=== PATIENT | female | born 1940 | race Caucasian/White ===

== ENCOUNTER 2017-12-16 10:53 | Inpatient (IN) | payer MEDICARE, BC ==
[~2017-12-16] VITALS: Ht 172.7 cm; Wt 65.7 kg
--- NOTE | ~2017-12-16 | MORECARE ---
CASE MANAGEMENT DISCHARGE SUMMARY PATIENT: ARIC FORTUNEBURY UNIT: [id number] ADM DATE: 12/16/17 AGE: 77 : 40 SEX: F ROOM/BED: D.4042 AUTHOR: RAGHU,DOC PHYSICIAN: REFERRING PHYSICIAN: TERELL VERGARA MD DATE OF SERVICE: 12/17/17 Discharge Plan Patient Name: ARIC FORTUNE Facility: [facility]:[place] : 1940 Planned Disposition: Home Anticipated Discharge Date: 12/17/17 Discharge Date: 12/17/2017 Expected LOS: 1 Initial Reviewer: [email or web address] Initial Review Date: 12/17/2017 Generated: 12/17/17 6:10 pm Comments DCP- Discharge Planning Updated by [email or web address]: Naldo Shaver on 12/17/17 4:[address] Patient Name: ARIC FORTUNE Admission Status: Urgent Accout number: [id number] Admission Date: 12-16-2017 : 1940 Admission Diagnosis:UNSPECIFIED ATRIAL FIBRILLATION Attending: TERELL VERGARA Current LOS: 1 Anticipated DC Date: 12-17-2017 Planned Disposition: Home Primary Insurance: MEDICARE A & B Discharge Planning Comments: CM MET WITH PT AND SPOUSE AT [facility] TO DISCUSS DISCHARGE PLANNING AND NEEDS. ARIC FORTUNE provided verbal consent to discuss current and ongoing needs with/in the presence of: SPOUSE, SONYA. PT REPORTS LIVING AT HOME INDEPENDENTLY WITH HER SPOUSE. PT HAS NO MEDICAL EQUIPMENT AND NO OUTSIDE SERVICES ASSISTING IN THE HOME. CM DISCUSSED AVAILABILITY OF HOME HEALTH, REHAB SERVICES AND MEDICAL EQUIPMENT. PT DENIES DISCHARGE NEEDS, REPORTS HER SPOUSE WILL PICK HER UP FOR DISCHARGE HOME TODAY. CNC LATHE MACHINE OPERATOR NOTIFIED. Wellness Assistant: Naldo Shaver DCPIA - Discharge Planning Initial Assessment Updated by [email or web address]: Naldo Shaver on 12/17/17 5:01 pm * Is the patient Alert and Oriented? Yes * How many steps to enter\exit or inside your home? RAMP * PCP DR OLSEN * Pharmacy [facility] [place] * Preadmission Environment Home with Family * ADLs Independent * Equipment None * Other Equipment NO MEDICAL EQUIPMENT PROVIDER PREFERENCE * List name and contact numbers for known caregivers / representatives who currently or will assist patient after discharge: SONYA FORTUNE, SPOUSE, * Verbal permission to speak to the caregivers and representatives has been obtained from the patient. Yes * Community resources currently utilized None * Please name any agencies selected above. NONE * Additional services required to return to the preadmission environment? No * Can the patient safely return to the preadmission environment? Yes * Has this patient been hospitalized within the prior 30 days at any hospital? No Last DP export: 12/17/17 4:02 p Patient Name: ARIC FORTUNE Page [id number] at 1710 All edits/amendments must be made on the electronic document DICTATION DATE: 12/17/171708 RN MOBILE: CARMELLA 12/17/171708 RPT#: [id number] DC DATE:12/17/17 STATUS: DIS IN [facility] [address] [place] [address] END OF REPORT
--- NOTE | ~2017-12-16 | MORECARE ---
CASE MANAGEMENT DISCHARGE SUMMARY PATIENT: ARIC FORTUNE CECIL UNIT: [id number] ADM DATE: 12/16/17 AGE: 77 : 40 SEX: F ROOM/BED: D.[facility]7 AUTHOR: TEMO KRISHNAMURTHY PHYSICIAN: REFERRING PHYSICIAN: TERELL VERGARA MD DATE OF SERVICE: 12/17/17 Discharge Plan Patient Name: ARIC FORTUNE [facility] [facility] 1940 Planned Disposition: Home Anticipated Discharge Date: 12/17/17 Discharge Date: 12/17/2017 Expected LOS: 1 Initial Reviewer: [email or web address] Initial Review Date: 12/17/2017 Generated: 12/17/17 6:02 pm DCPIA - Discharge Planning Initial Assessment Updated by [email or web address]: Naldo Shaver on 12/17/17 5:01 pm * Is the patient Alert and Oriented? Yes * How many steps to enter\exit or inside your home? RAMP * PCP DR OLSEN * Pharmacy [facility] [place] * Preadmission Environment Home with Family * ADLs Independent * Equipment None * Other Equipment NO MEDICAL EQUIPMENT PROVIDER PREFERENCE * List name and contact numbers for known caregivers / representatives who currently or will assist patient after discharge: SONYA FORTUNE, SPOUSE, * Verbal permission to speak to the caregivers and representatives has been obtained from the patient. Yes * Community resources currently utilized None * Please name any agencies selected above. NONE * Additional services required to return to the preadmission environment? No * Can the patient safely return to the preadmission environment? Yes * Has this patient been hospitalized within the prior 30 days at any hospital? No Patient Name: ARIC FORTUNE Page 23720 at 1703 All edits/amendments must be made on the electronic document DICTATION DATE: 12/17/171701 ASSISTANT PROFESSOR OF CHEMISTRY: CARMELLA 12/17/171701 RPT#: [id number] DC DATE:12/17/17 STATUS: DIS IN [facility] [address] [place] [address] END OF REPORT
--- NOTE | ~2017-12-16 | CN ---
PATIENT NAME:ARIC MILLER MEDICAL RECORD: [id number] : 40 LOCATION:D. D.2117 ADMIT DATE: 12/16/17 ACCOUNT: [id number] CONSULTING PHYSICIAN: CASSY VELAZQUEZ MD REFERRING PHYSICIAN: TERELL VERGARA MD DATE OF CONSULTATION: 12/16/2017 DIAGNOSES: 1. Paroxysmal atrial fibrillation. 2. Hypertension. HISTORY OF PRESENT ILLNESS: Mrs. Miller presents to Dr. Ortiz's office with labile hypertension. She is on losartan and hydrochlorothiazide. Supposedly, the EKG at his office with atrial fibrillation. Now, her EKG is sinus rhythm. Echocardiogram was performed. It is a normal LV function. Mild dilatation of the left atrium. No significant valvular disease. OVERALL IMPRESSION: Labile hypertension, paroxysmal atrial fibrillation. At this time, we will add Cardizem to her medical regimen. We will control the blood pressure as well as the atrial fibrillation. Further care depends on the results with the Cardizem. TRANSINT:[id number] Voice Confirmation ID: [id number] DOCUMENT ID: [id number] CASSY VELAZQUEZ MD at 1059 CC: [id number] DICTATION DATE: 12/16/17 1225 DOLL MAKER: 12/16/17 1239 ADM IN [place] [id number] [place] [id number]
--- NOTE | ~2017-12-16 | EC ---
PATIENT:ARIC FORTUNE DATE OF SERVICE: 12/16/17 SEX: F MEDICAL RECORD: [id number] DATE OF : 40 LOCATION:D.M2 D.211 AGE OF PATIENT: 77 ADMISSION DATE: 12/16/17 REFERRING PHYSICIAN: INTERPRETING PHYSICIAN: CASSY PARKER MD ECHOCARDIOGRAM REPORT ECHO CHARGES 4 ECHO COMPLETE Date: 12/16/17 CLINICAL DIAGNOSIS: AFIB/HTN ECHOCARDIOGRAPHIC MEASUREMENTS (adult normal given) AC root (d.<3.7cm) 3.1 cm LV Septum d (<1.2 cm> 1.2 cm Valve Excursion 1.2 cm LV Septum (systole) 1.6 cm Left Atria (s.<4.0cm> 3.6 cm LVPW d(<1.2cm) 1.5 cm RV (d.<2.3cm) 3.9 cm LVPW (sytole) 1.8 cm LV diastole(<5.6CM) 5.3 cm MV E-F(>70mm/sec) cm LV systole 3.7 cm LVOT Diameter 1.8 cm MV exc.(>10mm) 1.6 cm Est.ejection fraction (50-75%) % DOPPLER: LVIT cm/sec A 55.0 cm/sec E 90.0 cm/sec LA cm/sec RVSP 32 mmHg LVOT 123 cm/sec AOP1/2T m/s Asc. Ao 151 cm/sec RVOT 73 cm/sec RA cm/sec PA 108 cm/sec AV Gradient Peak 9.10 mmHg AV Mean 5.95 mmHg AV Area 1.7 cm MV Gradient Peak 8.52 mmHg MV Mean 1.89 mmHg MV Area cm COMMENTS: Work Ticket Distributor: Shama BRIG[employer] Tire Assembler: 1 Dr. Parker TAPE# PACS Pericardial Effusion N DATE OF SERVICE: 12/17/2017 PROCEDURE: Echocardiogram. FINDINGS: 1. Left ventricular chamber size is within normal limits. Left ventricular systolic function is normal. Overall ejection fraction estimated at 60%. 2. Left atrium is within normal limits at 3.6 cm. Right atrium and right ventricular chamber sizes are mildly dilated. 3. Valvular structure have normal structure and motion. ECHOCARDIOGRAM REPORT [id number] ARIC FORTUNE 4. Doppler interrogation reveals mild mitral regurgitation, mild tricuspid regurgitation, no other valvular insufficiency or stenosis. Pulmonary systolic pressure is estimated at 32 mmHg. 5. No evidence of pericardial effusion or left ventricular thrombus. TRANSINT:[id number] Voice Confirmation ID: [id number] DOCUMENT ID: [id number] CASSY PARKER MD at 1031 CC: [id number] DICTATION DATE: 12/17/17 1158 DOUGH PUNCHER: 12/17/17 1438 DIS IN 12/17/17 [place] [id number] [place] [id number]
[2017-12-16] MEDS ORDERED: HCTZ25 MG PO (11:59)
[2017-12-16] MEDS ORDERED: COZAAR50 MG PO (12:00)
[2017-12-16 12:03] LABS: BASOPHILS 0.5 % (0-2); EOSINOPHILS 0.7 % (0-7); HEMATOCRIT 42.5 % (36.0-48.0); HEMOGLOBIN 14.4 g/dL (12-16); IMMATURE GRANULOCYTES 0.2 % (0-5); LYMPHOCYTES 29.7 % (15-50); MCH 32.7 pg (26.0-34.0); MCHC 33.9 g/dL (31.0-37.0); MCV 96.4 fL (80.0-100.0); MEAN PLATELET VOLUME 10.9 fL (7.4-10.4); MONOCYTES 16.8 % (2-11); NEUTROPHILS 52.1 % (40-80); PLATELET COUNT 206 10x3/uL (130-400); RBC 4.41 10x6/uL (4.00-5.40); RDW 12.8 % (11.5-14.5); WBC 4.4 10x3/uL (4.8-10.8)
[2017-12-16] MEDS ORDERED: MAG PO (12:03)
[2017-12-16] MEDS ORDERED: [UNRECOGNIZED DRUG - OTHER] PO (12:03)
[2017-12-16 12:25] LABS: ANION GAP 12.3 mmol/L (8-16); BILIRUBIN - TOTAL 0.9 mg/dL (0.2-1.3); CALCIUM 9.2 mg/dL (8.5-10.1); CARBON DIOXIDE 30.1 mmol/L (21.0-32.0); CREATININE - SERUM 0.9 mg/dL (0.6-1.3); POTASSIUM - SERUM 3.4 mmol/L (3.5-5.1); PROTEIN - SERUM 6.9 g/dL (6.4-8.2)
[2017-12-16 12:30] LABS: MAGNESIUM - SERUM 2.2 mg/dL (1.8-2.4); THYROID STIMULATING HORMONE 1.34 uIU/mL (0.36-3.74)
[2017-12-16 12:34] LABS: CKMB 2.6 U/L (0.0-3.6); CREATINE KINASE 141 UL (21-215); TROPONIN-I 0.057 ng/mL (0.000-0.060)
[2017-12-16 14:01] LABS: APTT 34.2 SECONDS (22.8-39.4); INR 1.01 (0.85-1.17); PROTIME 12.9 SECONDS (11.6-15.0)
[2017-12-16 14:06] LABS: T4 THYROXIN - FREE 1.3 ng/dL (0.76-1.46)
[2017-12-16 14:30] LABS: LYMPHOCYTES 36 % (15-50); MONOCYTES 9 % (2-11); NEUTROPHILS 54 % (40-80); PLATELET ESTIMATE NORMAL; PLATELET MORPHOLOGY NORMAL PLT MORPH
[2017-12-16 14:49] VITALS: BP 152/76; Ht 172.7 cm; Wt 65.7 kg
[2017-12-16 15:32] LABS: APPEARANCE CLEAR (CLEAR); COLOR YELLOW (YELLOW); GLUCOSE NEGATIVE (NEGATIVE); KETONE SMALL mg/dL (NEGATIVE); NITRITE NEGATIVE (NEGATIVE); PROTEIN NEGATIVE (NEGATIVE)
[2017-12-16 15:33] LABS: BACTERIA NONE SEEN /hpf (NONE SEEN); BILIRUBIN NEGATIVE (NEGATIVE); EPITHELIAL CELLS OCC /hpf (0-5); RED CELLS - URINE NONE SEEN /hpf (0-5); UROBILINOGEN NORMAL (NORMAL); WHITE CELLS - URINE RARE /hpf (0-5)
[2017-12-16 15:57] VITALS: BP 141/70
[2017-12-16 18:29] LABS: CKMB 2.2 U/L (0.0-3.6); CREATINE KINASE 150 UL (21-215); TROPONIN-I 0.051 ng/mL (0.000-0.060)
[2017-12-16 20:52] VITALS: BP 121/72
[2017-12-17] VITALS: BP 142/73
[2017-12-17 01:13] LABS: CREATINE KINASE 133 UL (21-215); TROPONIN-I 0.045 ng/mL (0.000-0.060)
[2017-12-17 04:00] VITALS: BP 136/76
[2017-12-17 06:24] LABS: BASOPHILS 0.5 % (0-2); EOSINOPHILS 2.1 % (0-7); HEMATOCRIT 36.3 % (36.0-48.0); LYMPHOCYTES 35.1 % (15-50); MCH 32.3 pg (26.0-34.0); MCHC 33.1 g/dL (31.0-37.0); MCV 97.8 fL (80.0-100.0); MEAN PLATELET VOLUME 11.2 fL (7.4-10.4); MONOCYTES 19.1 % (2-11); NEUTROPHILS 43.2 % (40-80); PLATELET COUNT 181 10x3/uL (130-400); RBC 3.71 10x6/uL (4.00-5.40); WBC 3.9 10x3/uL (4.8-10.8)
[2017-12-17 06:37] LABS: CALC OSMOLALITY 285 mosm/kg (275-300); CALCIUM 7.6 mg/dL (8.5-10.1); CARBON DIOXIDE 25.6 mmol/L (21.0-32.0); CHLORIDE - SERUM 109 mmol/L (98-107); GLUCOSE 75 mg/dL (74-106); POTASSIUM - SERUM 3.2 mmol/L (3.5-5.1); SODIUM 143 mmol/L (136-145); UREA NITROGEN 17 mg/dL (7-18)
[2017-12-17 06:38] LABS: CREATININE - SERUM 0.6 mg/dL (0.6-1.3); eGFR NON AFRICAN AMERICAN > 90 mL/min (90-120)
[2017-12-17 09:00] VITALS: BP 171/79
[2017-12-17 13:29] VITALS: BP 135/79
[2017-12-17] MEDS ORDERED: CARDIZEM CD180 MG PO (15:09)
[2017-12-17 16:06] VITALS: BP 164/76
== END 2017-12-17 17:02 | disposition home or self-care (01) | DRG 310 ==
LOC: D.M2 10:53
PROVIDERS: Internal Medicine Nephrology
DX: I48.0 Paroxysmal atrial fibrillation (principal); I10 Essential (primary) hypertension; E87.6 Hypokalemia

== ENCOUNTER → 2020-08-09 12:04 | Outpatient (CLI) | payer MEDICARE, BC ==
[2017-12-16 14:49] VITALS: BMI 21.8
--- NOTE | ~2020-08-09 | EC ---
PATIENT:ARIC FORTUNE DATE OF SERVICE: 08/09/20 SEX: F MEDICAL RECORD: [id number] DATE OF : 40 [facility] AGE OF PATIENT: 79 ADMISSION DATE: 08/09/20 REFERRING PHYSICIAN: INTERPRETING PHYSICIAN: GERALD TOBIAS MD ECHOCARDIOGRAM REPORT ECHO CHARGES 4 ECHO COMPLETE Date: 08/09/20 CLINICAL DIAGNOSIS: HTN, PAROXYSMAL AFIB ECHOCARDIOGRAPHIC MEASUREMENTS (adult normal given) AC root (d.<3.7cm) 2.8 cm LV Septum d (<1.2 cm> 0.7 cm Valve Excursion 1.8 cm LV Septum (systole) 1.1 cm Left Atria (s.<4.0cm> 4.0 cm LVPW d(<1.2cm) 0.8 cm RV (d.<2.3cm) 2.9 cm LVPW (sytole) 1.2 cm LV diastole(<5.6CM) 5.4 cm MV E-F(>70mm/sec) cm LV systole 3.3 cm LVOT Diameter 1.8 cm MV exc.(>10mm) 1.2 cm Est.ejection fraction (50-75%) % DOPPLER: LVIT cm/sec A 39 cm/sec E 72 cm/sec LA cm/sec RVSP 37 mmHg LVOT 97 cm/sec AOP1/2T m/s Asc. Ao 143 cm/sec RVOT 67 cm/sec RA cm/sec PA 65 cm/sec AV Gradient Peak 8.2 mmHg AV Mean 4.3 mmHg AV Area 1.4 cm MV Gradient Peak 5.0 mmHg MV Mean 2.2 mmHg MV Area cm COMMENTS: Customer Greeter: Slava PRESCOTT Kiln Stacker: 3 Dr. Lynn TAPE# Pericardial Effusion N DATE OF SERVICE: Adequate 2D, color-flow imaging, spectral Doppler, and M-Mode FINDINGS: No LVH. LV internal dimensions are normal. Wall motion is normal. EF equal to 55%. Aortic valve is tricuspid. No evidence of stenosis. No significant AI. Left atrium is upper limits of normal at 4.0 cm. Mitral valve shows no prolapse. Trace MR. Right side is grossly normal. Trace TR. TRANSINT:[id number] Voice Confirmation ID: [id number] DOCUMENT ID: [id number] ECHOCARDIOGRAM REPORT [id number] ARIC FORTUNE GERALD TOBIAS MD CC: [id number] DICTATION DATE: 08/13/20 1357 RELATIONSHIP MGR: 08/13/20 2217 DEP CLI 08/09/20 [place] [id number] [place] [address]
[~2020-08-09 12:04] MED LIST: CARDIZEM CD180 MG PO; COZAAR50 MG PO; HCTZ25 MG PO; MAG PO; [UNRECOGNIZED DRUG - OTHER] PO
== END | disposition home or self-care (01) ==
LOC: D.HCCECHO 12:04
PROVIDERS: ATTEND Internal Medicine Interventional Cardiology
DX: I10 Essential (primary) hypertension (principal)